=== PATIENT | male | born 1955 | race Hispanic/Latino ===

== ENCOUNTER 2016-06-16 16:49 | Emergency (ER) | payer MEDICARE ==
[2016-06-16 17:53] LABS: Basophils % (Auto) 0.9 % (0.0-1.8); Hematocrit 47.2 % (35.5-45.6); Hemoglobin 15.7 gm/dl (11.8-15.2); Mean Corpuscular HGB Conc 33 % (32-34); Mean Corpuscular Hemoglobin 28 pg (28-32); Mean Corpuscular Volume 85 fl (84-94); Platelet Count 356 K/mm3 (140-440); Red Blood Count 5.56 M/mm3 (3.65-5.03); Red Cell Distribution Width 13.5 % (13.2-15.2); White Blood Count 10.2 K/mm3 (4.5-11.0)
[2016-06-16 18:14] LABS: Alanine Aminotransferase 8 units/L (7-56); Albumin 4.2 g/dL (3.9-5); Albumin/Globulin Ratio 1.1 %; Alkaline Phosphatase 109 units/L (35-129); Anion Gap 24 mmol/L; BUN/Creatinine Ratio 16.66; Bilirubin,Total 0.5 mg/dL (0.1-1.2); Blood Urea Nitrogen 10 mg/dL (9-20); Calcium 9.4 mg/dL (8.4-10.2); Carbon Dioxide 20 mmol/L (22-30); Chloride 98.2 mmol/L (98-107); Glucose 95 mg/dL (75-100); Potassium 3.9 mmol/L (3.6-5.0); Sodium 138 mmol/L (137-145)
[2016-06-16 20:08] VITALS: BP 132/88
[2016-06-16] MEDS ORDERED: MORPHINE IV ONE (20:42)
--- NOTE | 2016-06-16 20:44 | Emergency Department Report ---
HPI - General Chief Complaint: Extremity Injury, Lower Time Seen by Provider: 06/16/16 20:17 - HPI HPI: This is a 61-year-old male who presents to the emergency department, dropped off by his roommate, with complaint of bilateral lower leg pain and ulcerations. Patient has been dealing with chronic lower extremity wounds for the past 4-5 years and says that they "come and go." However the patient says she has been dealing with these current ulcers for at least the past 2 weeks. He has a previous history of cellulitis, staph infection. He denies any fever, nausea, vomiting, chest pain, shortness of breath. Patient is able to ambulate but has some pain with doing so. He has not taken anything for symptoms prior to presentation. He does not have a primary care doctor. No recent travel or sick contacts at home. He denies any past medical history of diabetes. ED Past Medical Hx - Past Medical History Previous Medical History?: Yes Additional medical history: CELLULITIS. STAPH INFECTION, Tin leg ulcers - Surgical History Past Surgical History?: Yes Additional Surgical History: LEFT ANKLE - Social History Smoking Status: Former Smoker Substance Use Type: Alcohol, Non Opiate Pain - Medications Home Medications: Home Medications Medication Instructions Recorded Confirmed Last Taken Type Sulfamethoxazole/Trimethoprim 1 each PO ONCE #20 tablet 06/16/16 Unknown Rx [Bactrim DS TAB] traMADol [Ultram 50 MG tab] 50 mg PO Q6HR PRN #10 tablet 06/16/16 Unknown Rx ED Review of Systems ROS: Stated complaint: LEG SORE/INFECTED Other details as noted in HPI Comment: All other systems reviewed and negative Constitutional: denies: chills, fever Eyes: denies: eye pain, eye discharge, vision change ENT: denies: ear pain, throat pain Respiratory: denies: cough, shortness of breath, wheezing Cardiovascular: denies: chest pain, palpitations Gastrointestinal: denies: abdominal pain, nausea, diarrhea Genitourinary: denies: urgency, dysuria Musculoskeletal: arthralgia, myalgia. denies: back pain Skin: lesions. denies: pruritus Neurological: denies: headache, weakness, paresthesias Physical Exam - Physical Exam Vital Signs: Vital Signs 06/16/16 06/16/16 06/16/16 17:00 20:04 20:34 Temperature 97.9 F 98.0 F Pulse Rate 94 H 72 Respiratory 18 18 18 Rate Blood Pressure 145/94 Blood Pressure 132/88 [Left] O2 Sat by Pulse 99 98 100 Oximetry Physical Exam: GENERAL: The patient is well-developed well-nourished. HEENT: Normocephalic. Atraumatic. Extraocular motions are intact. Patient has moist mucous membranes. Pupils are reactive to light bilaterally. NECK: Supple. Trachea is midline. CHEST/LUNGS: Clear to auscultation. There is no respiratory distress noted. HEART/CARDIOVASCULAR: Regular. There is no tachycardia. There is no gallop rub or murmur. ABDOMEN: Abdomen is soft, nontender. Patient has normal bowel sounds. There is no abdominal distention. SKIN: Patient has anterior bilateral lower extremity ulcerations. The left leg the ulceration is a stage II and is about 10 cm in its greatest diameter and a oval shape. The right leg has an ulceration that is also a stage II but is about 15 cm in its greatest diameter and a normal shape. Both of the ulcerations have some serous drainage but there is no bleeding or purulent drainage seen. There is some pink granulation tissue around the ulcers but no obvious erythema or signs of cellulitis. Patient has onychomycosis to all of his toenails. NEURO: The patient is awake, alert, and oriented. The patient is cooperative. The patient has no focal neurologic deficits. The patient has normal speech. MUSCULOSKELETAL: There is tenderness to palpation to the bilateral lower extremities to the anterior tib-fib where the patient has what appears to be chronic ulcerations. There is no limitation range of motion. Cap refill less than 2 seconds. ED Course Vital Signs 06/16/16 06/16/16 06/16/16 17:00 20:04 20:34 Temperature 97.9 F 98.0 F Pulse Rate 94 H 72 Respiratory 18 18 18 Rate Blood Pressure 145/94 Blood Pressure 132/88 [Left] O2 Sat by Pulse 99 98 100 Oximetry ED Medical Decision Making - Lab Data Result diagrams: 06/16/16 17:24 06/16/16 17:24 - Radiology Data Radiology results: image reviewed interpreted by me: X-ray of the bilateral tib-fib does not show any acute fracture, dislocation or osseous abnormalities. There is some soft tissue defects seen consistent with ulceration. - Medical Decision Making 61-year-old male presents to the emergency department with a two-week history of lower extremity wounds and ulcers that apparently has been going on for the past 4-5 years. Patient's vital signs are stable including being afebrile. Patient's labs do not show any leukocytosis or lactic acidosis. X-rays do not show any fracture, osseous abnormalities or any acute process. Patient was cleaned up and given sterile dressings. He was given some pain control and a dose of antibiotics. He'll be given referrals for the local wound clinic and primary care physicians. Patient does not appear to have any signs of sepsis or decompensation. He appears safe for discharge home at this time. He'll return to the ER with any worsening of his symptoms or any acute distress. - Differential Diagnosis ulcer, cellulitis, abscess Critical Care Time: No Critical care attestation.: If time is entered above; I have spent that time in minutes in the direct care of this critically ill patient, excluding procedure time. ED Disposition Clinical Impression: Bilateral leg ulcer, Chronic wound of extremity Disposition: DISCHARGED TO HOME OR SELFCARE Is pt being admited?: No Condition: Stable Instructions: Acute Wound Care (ED), Chronic Wound Care (ED) Additional Instructions: Please follow-up with the wound care clinic that you have been given a referral to. I will skin your referral for local primary care physicians and/or clinics. Return to the emergency department with any development of fever, worsening of the ulcerations and especially if you see purulent discharge, or any acute distress. You've been prescribed a medication that is sedating. Therefore this medication cannot be mixed with alcohol, or taken prior to driving, working, or being responsible for children. Prescriptions: Sulfamethoxazole/Trimethoprim [Bactrim DS TAB] 1 each PO ONCE #20 tablet traMADol [Ultram 50 MG tab] 50 mg PO Q6HR PRN #10 tablet PRN Reason: Pain Referrals: PRIMARY CARE, [Primary Care Provider] - 3-5 Days ROHAN OBRIEN MD [Staff Physician] - 3-5 Days [facility] [Outside] - 3-5 Days [facility] [Outside] - 3-5 Days Time of Disposition: 23:00
--- NOTE | 2016-06-16 22:50 | XRay Report ---
FINAL REPORT PROCEDURE: XR TIB/FIB BILAT 2V TECHNIQUE: Bilateral tibia, AP and lateral views HISTORY: bilat leg pain, ulcer COMPARISON: No prior studies are available for comparison. FINDINGS: There are significant osteoarthritic changes of the right knee, with joint space narrowing and osteophyte formation. There is lateral soft tissue swelling of the right ankle. No acute fracture or dislocation is seen of the right lower leg. There are predominantly medial compartment osteoarthritic changes of the left knee. Old healed fracture of the distal left fibula shaft is noted. There has been internal fixation of left medial malleolus. Osteoarthritic changes of the left tibiotalar joint are noted. No acute fracture or dislocation is seen. IMPRESSION: Chronic changes as above. No acute osseous abnormalities are seen.
[2016-06-16] MEDS ORDERED: BACTRIM DS PO ONE (22:53)
== END 2016-06-17 | disposition home or self-care (01) ==
LOC: ED 16:49
DX: L97.829 Non-pressure chronic ulcer of other part of left lower leg with unspecified severity (principal); L97.819 Non-pressure chronic ulcer of other part of right lower leg with unspecified severity; Z87.891 Personal history of nicotine dependence
CPT/HCPCS: 36415; 73590; 80053; 82140; 85025; 96374; 99284; J2270

== ENCOUNTER 2017-01-28 08:00 | Outpatient (CLI) | payer MEDICARE ==
[2017-01-28] MEDS ORDERED: XYLOCAINE TOPICAL 4% TP ONE ×2 (08:18→08:39)
== END 2017-01-28 08:01 | disposition home or self-care (01) ==
LOC: WOUND 08:00
PROVIDERS: ATTEND Surgery
DX: I70.248 Atherosclerosis of native arteries of left leg with ulceration of other part of lower leg (principal); I70.238 Atherosclerosis of native arteries of right leg with ulceration of other part of lower leg; L97.812 Non-pressure chronic ulcer of other part of right lower leg with fat layer exposed; L97.822 Non-pressure chronic ulcer of other part of left lower leg with fat layer exposed; Z87.891 Personal history of nicotine dependence

== ENCOUNTER 2017-02-11 08:02 | Outpatient (CLI) | payer MEDICARE ==
[2017-02-11] MEDS ORDERED: XYLOCAINE TOPICAL 4% TP ONE ×2 (08:44→09:30)
[2017-02-11] MEDS ORDERED: XYLOCAINE TOPICAL 2% TP ONE (09:30)
== END 2017-02-11 08:03 | disposition home or self-care (01) ==
LOC: WOUND 08:02
PROVIDERS: ATTEND Surgery
DX: I70.248 Atherosclerosis of native arteries of left leg with ulceration of other part of lower leg (principal); I70.238 Atherosclerosis of native arteries of right leg with ulceration of other part of lower leg; L97.812 Non-pressure chronic ulcer of other part of right lower leg with fat layer exposed; L97.822 Non-pressure chronic ulcer of other part of left lower leg with fat layer exposed; Z87.891 Personal history of nicotine dependence

== ENCOUNTER 2018-09-29 13:16 | Emergency (ER) | payer MEDICARE ==
[2018-09-29 13:38] VITALS: BP 141/80
--- NOTE | 2018-09-29 13:41 | Event Note ---
ED Screening Note ED Screening Note: NO MD NO RX NO DM NON HEALING BLE WOUNDS NO FEVER TACHY HAS MEDICARE BUT NO MD WILL NEED HELP TO ARRANGE OUTPT CARE HAD ARTERIAL STUDIES 2017- NORMAL This initial assessment/diagnostic orders/clinical plan/treatment(s) is/are subject to change based on patients health status, clinical progression and re- assessment by fellow clinical providers in the ED. Further treatment and workup at subsequent clinical providers discretion. Patient/guardian urged not to elope from the ED as their condition may be serious if not clinically assessed and managed. Initial orders include: RO SEPSIS RO DVT
--- NOTE | 2018-09-29 14:22 | XRay Report ---
CHEST 2 VIEWS INDICATION: Shortness of breath. COMPARISON: 01/09/2017 FINDINGS: Support devices: None. Heart: Within normal limits. Lungs/pleura: No acute air space or interstitial disease. No pneumothorax. Additional findings: None. IMPRESSION: No acute cardiopulmonary process identified. Signer Name: Kareem Summers Jr, MD Signed: 09/29/2018 2:17 PM Workstation Name: [id number]
--- NOTE | 2018-09-29 15:26 | Vascular Lab Report ---
DUPLEX DOPPLER LOWER EXTREMITY VEINS, BILATERAL INDICATION: NON HEALING WOUNDS BLE. TECHNIQUE: Duplex doppler imaging was performed through the veins of both lower extremities using venous mariela leann and other maneuvers. COMPARISON: No relevant prior imaging study available. FINDINGS: Right Common femoral vein: Negative. Right Superficial femoral vein: Negative. Right Popliteal vein: Negative. Right Calf veins: Unable to visualize secondary to wounds and patient pain.. Left Common femoral vein: Negative. Left Superficial femoral vein: Negative. Left Popliteal vein: Negative. Left Calf veins: Negative. Additional findings: A 2.9 x 0.8 cm popliteal cyst is suspected.. IMPRESSION: No sonographic evidence for DVT in either lower extremity. Popliteal cyst on the right. Signer Name: Kareem Summers Jr, MD Signed: 09/29/2018 3:22 PM Workstation Name: [id number]
[2018-09-29 15:57] LABS: Basophils # (Auto) 0.1 K/mm3 (0.0-0.1); Basophils % (Auto) 0.9 % (0.0-1.8); Eosinophils # (Auto) 0.3 K/mm3 (0.0-0.4); Eosinophils % (Auto) 2.7 % (0.0-4.3); Hematocrit 43.8 % (35.5-45.6); Hemoglobin 14.6 gm/dl (11.8-15.2); Lymphocytes # (Auto) 2.4 K/mm3 (1.2-5.4); Lymphocytes % (Auto) 21.9 % (13.4-35.0); Mean Corpuscular HGB Conc 33 % (32-34); Mean Corpuscular Volume 86 fl (84-94); Monocytes # (Auto) 1.1 K/mm3 (0.0-0.8); Monocytes % (Auto) 9.6 % (0.0-7.3); Platelet Count 451 K/mm3 (140-440); Red Blood Count 5.13 M/mm3 (3.65-5.03); Red Cell Distribution Width 13.6 % (13.2-15.2)
--- NOTE | 2018-09-29 16:16 | Emergency Department Report ---
ED General Adult HPI - General Chief complaint: Extremity Injury, Lower Stated complaint: PAIN IN BOTH LEGS/SWOLLEN/OPEN WOUNDS Time Seen by Provider: 09/29/18 13:35 Source: patient Mode of arrival: Ambulatory Limitations: No Limitations - History of Present Illness Initial comments: This is a 63-year-old male presents to ED with lower extremity wound sores intermittently for the past 4-5 years. Patient states that intermittently the sores get worse. Patient states he is able to ambulate but is easily experiencing pain pain caused by the wounds. Patient presents today because of pain caused by this wound sores. Patient denies any history of diabetes. She denies any recent injury, fever, chills, nausea vomiting.Patient denies difficulty walking or - Related Data Previous Rx's Medication Instructions Recorded Last Taken Type HYDROcodone/APAP 10-325 [Morgan 1 each PO Q6HR PRN #12 tablet 01/10/17 Unknown Rx 10/325] levoFLOXacin [Levaquin] 250 mg PO QDAY #21 tablet 01/10/17 Unknown Rx Clindamycin [Clindamycin CAP] 300 mg PO Q8H #21 cap 09/29/18 Unknown Rx HYDROcodone/APAP 5-325 [Morgan 1 each PO Q6HR PRN #15 tablet 09/29/18 Unknown Rx 5/325] Naproxen [Naprosyn] 500 mg PO BID #30 tablet 09/29/18 Unknown Rx Allergies Allergy/AdvReac Type Severity Reaction Status Date / Time codeine AdvReac Vomiting Verified 09/29/18 13:18 doxycycline AdvReac Swelling Verified 09/29/18 13:18 ED Review of Systems ROS: Stated complaint: PAIN IN BOTH LEGS/SWOLLEN/OPEN WOUNDS Other details as noted in HPI ED Past Medical Hx - Past Medical History Hx Congestive Heart Failure: No Hx Diabetes: No Hx Asthma: No Hx COPD: No Hx HIV: No Additional medical history: CELLULITIS. STAPH INFECTION, Tin leg ulcers - Surgical History Additional Surgical History: LEFT ANKLE - Social History Smoking Status: Never Smoker Substance Use Type: None - Medications Home Medications: Home Medications Medication Instructions Recorded Confirmed Last Taken Type HYDROcodone/APAP 10-325 [Morgan 1 each PO Q6HR PRN #12 tablet 01/10/17 Unknown Rx 10/325] levoFLOXacin [Levaquin] 250 mg PO QDAY #21 tablet 01/10/17 Unknown Rx Clindamycin [Clindamycin CAP] 300 mg PO Q8H #21 cap 09/29/18 Unknown Rx HYDROcodone/APAP 5-325 [Morgan 1 each PO Q6HR PRN #15 tablet 09/29/18 Unknown Rx 5/325] Naproxen [Naprosyn] 500 mg PO BID #30 tablet 09/29/18 Unknown Rx ED Physical Exam - General Limitations: No Limitations General appearance: alert, in no apparent distress - Head Head exam: Present: atraumatic, normocephalic - Eye Eye exam: Present: normal appearance - ENT ENT exam: Present: mucous membranes moist - Neck Neck exam: Present: normal inspection - Respiratory Respiratory exam: Present: normal lung sounds bilaterally. Absent: respiratory distress - Cardiovascular Cardiovascular Exam: Present: regular rate, normal rhythm. Absent: systolic murmur, diastolic murmur, rubs, gallop - GI/Abdominal GI/Abdominal exam: Present: soft, normal bowel sounds - Rectal Rectal exam: Present: deferred - Extremities Exam Extremities exam: Present: normal inspection - Back Exam Back exam: Present: normal inspection - Neurological Exam Neurological exam: Present: alert, oriented X3 - Psychiatric Psychiatric exam: Present: normal affect, normal mood - Skin Skin exam: Present: warm, dry, normal color, erythema, other (multiple wound and ulcer on bilateral lower extremities close and involving the feet.). Absent: rash - Expanded Skin Exam Expanded 1 - multipler ulcerated wounds ED Course Vital Signs 09/29/18 09/29/18 09/29/18 13:35 16:40 17:03 Temperature 97.7 F Pulse Rate 109 H Respiratory 16 17 17 Rate Blood Pressure 141/80 O2 Sat by Pulse 98 Oximetry 09/29/18 19:13 Temperature Pulse Rate 74 Respiratory 16 Rate Blood Pressure O2 Sat by Pulse 100 Oximetry ED Medical Decision Making - Lab Data Result diagrams: 09/29/18 15:29 09/29/18 15:29 - Radiology Data Radiology results: report reviewed, image reviewed DUPLEX DOPPLER LOWER EXTREMITY VEINS, BILATERAL INDICATION: NON HEALING WOUNDS BLE. TECHNIQUE: Duplex doppler imaging was performed through the veins of both lower extremities using venous compression and other maneuvers. COMPARISON: No relevant prior imaging study available. FINDINGS: Right Common femoral vein: Negative. Right Superficial femoral vein: Negative. Right Popliteal vein: Negative. Right Calf veins: Unable to visualize secondary to wounds and patient pain.. Left Common femoral vein: Negative. Left Superficial femoral vein: Negative. Left Popliteal vein: Negative. Left Calf veins: Negative. Additional findings: A 2.9 x 0.8 cm popliteal cyst is suspected.. IMPRESSION: No sonographic evidence for DVT in either lower extremity. Popliteal cyst on the right. Signer Name: Kareem Andino Jr, MD Signed: 09/29/2018 3:22 PM Workstation Name: [id number] Transcribed By: TTR Dictated By: KAREEM ANDINO JR, MD Electronically Authenticated By: KAREEM ANDINO JR, MD Signed Date/Time: 09/29/18 1522 CHEST 2 VIEWS INDICATION: Shortness of breath. COMPARISON: 01/09/2017 FINDINGS: Support devices: None. Heart: Within normal limits. Lungs/pleura: No acute air space or interstitial disease. No pneumothorax. Additional findings: None. IMPRESSION: No acute cardiopulmonary process identified. Signer Name: Kareem Andino Jr, MD Signed: 09/29/2018 2:17 PM Workstation Name: [id number] Transcribed By: TTR Dictated By: KAREEM ANDINO JR, MD Electronically Authenticated By: KAREEM ANDINO JR, MD Signed Date/Time: 09/29/18 1417 - Medical Decision Making 63-year-old male presents to the emergency department with a one-week history of lower extremity wounds and ulcers that apparently has been going on for the past 4-5 years. Patient's vital signs are stable including being afebrile. Patient's labs do not show any leukocytosis or lactic acidosis. X-rays do not show any fracture, osseous abnormalities or any acute process. Doppler studies of bilateral extremities shows no signs of thrombosis or arterial blockage. Patient was cleaned up and given sterile dressings. He was given some pain control and a dose of antibiotics. He'll be given referrals for the local wound clinic and primary care physicians. Patient does not appear to have any signs of sepsis or decompensation. Critical care attestation.: If time is entered above; I have spent that time in minutes in the direct care of this critically ill patient, excluding procedure time. ED Disposition Clinical Impression: Leg ulcer, Bilateral leg ulcer, Wound of lower extremity Disposition: - TO HOME OR SELFCARE Is pt being admited?: No Does the pt Need Aspirin: No Condition: Stable Instructions: Chronic Wound Care (ED), Stasis Dermatitis (ED) Additional Instructions: Make sure to follow up with the primary care physician as discussed. Follow-up with wound care clinic yet been given. He had been given a sedating medication please take as prescribed. Take all your medications as you've been prescribed. If you have any worsening symptoms or develop new symptoms please return to ED immediately. Prescriptions: Clindamycin [Clindamycin CAP] 300 mg PO Q8H #21 cap Naproxen [Naprosyn] 500 mg PO BID #30 tablet HYDROcodone/APAP 5-325 [Morgan 5/325] 1 each PO Q6HR PRN #15 tablet PRN Reason: Pain Referrals: DENNIS COOPER MD [Primary Care Provider] - 3-5 Days [facility] [Outside] - 3-5 Days [facility] [Outside] - 3-5 Days [facility] [Outside] - 3-5 Days Forms: Work/School Release Form Time of Disposition: 18:35
[2018-09-29 16:29] LABS: Alanine Aminotransferase 8 units/L (7-56); Albumin 3.9 g/dL (3.9-5); BUN/Creatinine Ratio 21; Blood Urea Nitrogen 15 mg/dL (9-20); Calcium 9.4 mg/dL (8.4-10.2); Hemolysis Index 5
[2018-09-29] MEDS ORDERED: NORCO 5/325 PO ONE (16:30)
[2018-09-29] MEDS ORDERED: CLEOCIN PO ONE (16:31)
[2018-09-29] MEDS ORDERED: IBUPROFEN PO ONE (19:04)
[2018-09-29] MEDS ORDERED: TYLENOL PO ONE (19:05)
[2018-09-29] MEDS ORDERED: TYLENOL ONE (19:07)
[2018-09-29] MEDS ORDERED: IBUPROFEN ONE (19:07)
== END 2018-09-29 19:13 | disposition home or self-care (01) ==
LOC: ED 13:16
DX: L97.829 Non-pressure chronic ulcer of other part of left lower leg with unspecified severity (principal); L97.819 Non-pressure chronic ulcer of other part of right lower leg with unspecified severity; Z88.6 Allergy status to analgesic agent; Z88.8 Allergy status to other drugs, medicaments and biological substances; Z79.899 Other long term (current) drug therapy
CPT/HCPCS: 36415; 71046; 80053; 82140; 85025; 87040; 93970